=== PATIENT | male | born 1995 | race African-American/Black ===

== ENCOUNTER 2017-01-10 08:28 | Emergency (ER) | payer SELFPAY ==
[~2017-01-10] VITALS: Ht 170.2 cm; Wt 69.6 kg
[2017-01-10] MEDS ORDERED: IV NORMAL SALINE 500ML BAG 500 ML IV SCH (09:15)
--- NOTE | 2017-01-10 09:27 | PHYS DOC ---
Past Medical History Past Medical History: No Pertinent History Past Surgical History: No Surgical History Smoking: Cigarettes, 1 Pack Per Day Alcohol Use: Occasionally Drug Use: None Adult General Chief Complaint Chief Complaint: HEMATEMESIS/VOMITING BLOOD [facility] HPI he is a pleasant 21-year-old male with a history of intermittent subxiphoid chest pain for the last 6 months. Pain in his chest described as a dull ache with no radiation. A 6 of 10. It is not worsened by position or activity. He does no cough, no URI symptoms, no nausea no vomiting or diarrhea. Patient also complains of left flank pain is ongoing for 4 years. It is been episodic but her last 3-4 days as got progressively worse. It is localized primarily in the left lower quadrant. It is sometimes sharp and stabbing but does wax and wane with complete resolution. He also admits she's had some stools with possible streaks of blood. And one episode of hematemesis this morning. He denies any consumption of NSAIDs, denies any prior history of peptic ulcer disease, he does smoke does drink on occasion but not regularly. Patient has not taken any [id number] medications, he denies any fevers, will night sweats, weight loss, chills but has had some mild dizziness with standing quickly when he has bouts of this pain. Patient has not been evaluated for these symptoms and for years. Differential diagnosis for chest pain: Pericarditis, myocarditis, endocarditis, pneumothorax, pneumonia, aortic dissection, esophageal spasm, esophagitis, peptic ulcer disease, acute coronary syndrome, mediastinitis, Boerhaave syndrome , musculoskeletal chest wall pain, costochondritis, intercostal strain, rib fracture, pulmonary contusion, pneumonitis, pleural effusion, pericardial effusion, pericardial tamponode, and pleurisy. Review of Systems Review of Systems Constitutional: Denies fever or chills [] Eyes: Denies change in visual acuity, redness, or eye pain [] HENT: Denies nasal congestion or sore throat [] Respiratory: Denies cough or shortness of breath [] Cardiovascular: No additional information not addressed in HPI [] GI: he complains of abdominal pain in the left lower flank, nausea and vomiting 1 with hematemesis, no rectal pain no stooling problems except for mild streaks of blood : Denies dysuria or hematuria [] Musculoskeletal: He complains from earlier left flank pain. Integument: Denies rash or skin lesions [] Neurologic: Denies headache, focal weakness or sensory changes [] Endocrine: Denies polyuria or polydipsia [] Current Medications Current Medications Current Medications Medications (Trade) Dose Ordered Sig/Tammy Start Time Stop Time Status Last Admin Dose Admin Info (Do NOT chart on this entry -- for MONITORING) 1 each PRN DAILY PRN 01/10/17 10:15 01/12/17 10:14 Iohexol (Omnipaque 300 Mg/ml) 75 ml 1X ONCE 01/10/17 10:15 01/10/17 10:16 DC 01/10/17 10:22 75 ML Ketorolac Tromethamine (Toradol) 30 mg 1X ONCE 01/10/17 10:45 01/10/17 10:47 DC 01/10/17 11:19 30 MG Sodium Chloride 500 ml @ 500 mls/hr Q1H 01/10/17 09:15 01/10/17 09:41 DC 01/10/17 09:38 500 MLS/HR Sodium Chloride (Normal Saline Flush) 10 ml QSHIFT PRN 01/10/17 09:15 01/10/17 11:19 10 ML Allergies Allergies Allergies Coded Allergies Type Severity Reaction Last Updated Verified No Known Drug Allergies 01/10/17 No Physical Exam Physical Exam Vital signs recorded on the chart patient noted to be bradycardic which is normal for patient as he says, "" athlete Constitutional: Well developed, well nourished, no acute distress, non-toxic appearance. [] HENT: Normocephalic, atraumatic, bilateral external ears normal, oropharynx moist, no oral exudates, nose normal. [] Eyes: PERRLA, EOMI, conjunctiva normal, no discharge. [] Neck: Normal range of motion, no tenderness, supple, no stridor. [] Cardiovascular:Heart rate regular rhythm, no murmur [] Lungs & Thorax: Bilateral breath sounds clear to auscultation [] Abdomen: Bowel sounds normal, soft, mild tenderness to palpation left lower quadrant. No epigastric discomfort no Marx's or McBurney's point tenderness to palpation., no masses, no pulsatile masses. Rectal exam demonstrates no gross blood, no hematoma, no hemorrhoids, no fissure. No tenderness on palpation [] Skin: Warm, dry, no erythema, no rash. [] Back: No tenderness, no CVA tenderness. [] Extremities: No tenderness, no cyanosis, no clubbing, ROM intact, no edema. [] Neurologic: Alert and oriented X 3, normal motor function, normal sensory function, no focal deficits noted. [] Psychologic: Affect normal, judgement normal, mood normal. [] Current Patient Data Vital Signs Vital Signs Date Time Temp Pulse Resp B/P (MAP) Pulse Ox O2 Delivery O2 Flow Rate FiO2 01/10/17 11:20 40 16 132/62 (85) 98 Room Air 01/10/17 09:14 98.2 98.2 Lab Values Laboratory Tests Test 01/10/17 09:20 01/10/17 09:25 Stool Occult Blood Negative (NEG) White Blood Count 2.7 x10^3/uL (4.0-11.0) L Red Blood Count 5.05 x10^6/uL (4.30-5.70) Hemoglobin 15.4 g/dL (13.0-17.5) Hematocrit 44.7 % (39.0-53.0) Mean Corpuscular Volume 89 fL (79-100) Mean Corpuscular Hemoglobin 31 pg (25-35) Mean Corpuscular Hemoglobin Concent 34 g/dL (31-37) Red Cell Distribution Width 13.3 % (11.5-14.5) Platelet Count 228 x10^3/uL (140-400) Neutrophils (%) (Auto) 29 % (31-73) L Lymphocytes (%) (Auto) 60 % (24-48) H Monocytes (%) (Auto) 10 % (0-9) H Eosinophils (%) (Auto) 1 % (0-3) Basophils (%) (Auto) 1 % (0-3) Neutrophils # (Auto) 0.8 x10^3uL (1.8-7.7) L Lymphocytes # (Auto) 1.6 x10^3/uL (1.0-4.8) Monocytes # (Auto) 0.3 x10^3/uL (0.0-1.1) Eosinophils # (Auto) 0.0 x10^3/uL (0.0-0.7) Basophils # (Auto) 0.0 x10^3/uL (0.0-0.2) Platelet Estimate Pending Sodium Level 141 mmol/L (136-145) Potassium Level 4.5 mmol/L (3.5-5.1) Chloride Level 105 mmol/L (98-107) Carbon Dioxide Level 31 mmol/L (21-32) Anion Gap 5 (6-14) L Blood Urea Nitrogen 20 mg/dL (8-26) Creatinine 1.1 mg/dL (0.7-1.3) Estimated GFR (Cockcroft-Gault) 100.4 BUN/Creatinine Ratio 18 (6-20) Glucose Level 89 mg/dL (70-99) Calcium Level 8.6 mg/dL (8.5-10.1) Total Bilirubin 0.7 mg/dL (0.2-1.0) Aspartate Amino Transferase (AST) 17 U/L (15-37) Alanine Aminotransferase (ALT) 18 U/L (16-63) Alkaline Phosphatase 87 U/L (46-116) Total Protein 7.8 g/dL (6.4-8.2) Albumin 3.8 g/dL (3.4-5.0) Albumin/Globulin Ratio 1.0 (1.0-1.7) Laboratory Tests 01/10/17 09:25 Laboratory Tests 01/10/17 09:25 EKG EKG [] Radiology/Procedures Radiology/Procedures [] Course & Med Decision Making Course & Med Decision Making Pertinent Labs and Imaging studies reviewed. (See chart for details) []A she presents with intermittent chest pain for 6 months as well as 4 years of left flank pain. It isn't episodic discomfort as sharp and stabbing in nature. Not changed by activity or position. Chest pain differential is considered upon arrival. Patient is low risk for acute coronary event syndrome. But we will make sure that there is no evidence of pericarditis or pericardial effusion or cardiac issue or injury. Patient also the CAT scan of his abdomen to ensure there is no evidence of kidney stone or reticularis. Patient admits that he does drink alcohol on occasion but undoubtedly be suffering from an erosive alcohol gastritis or peptic ulcer disease at this time. Patient's CAT scan read at approximately 11:30 AM dose is no occult appendicitis , bowel obstruction, diverticulitis, diverticulosis, evidence of bowel inflammation consistent with IBS also cluster Crohn's. Patient is resting comfortable he is guaiac-negative from below. CBC is normal. Although his white count is 2.7 unclear cause. Patient's CMP is otherwise normal. Patient is resting without issue no vomiting or nausea no diarrhea here in the emergency room. Time is now 12:10 PM Patient tells me that their symptoms given during CC are improved. We reviewed labs and radiology reports with patient and any family at bedside. He feels markedly better follow-up with his doctor Dr. MAKRO Cifuentes Disclaimer Vane Disclaimer This electronic medical record was generated, in whole or in part, using a voice recognition dictation system. Departure Departure Impression: Primary Impression: Hematemesis Additional Impression: Abdominal pain Disposition: HOME, SELF-CARE Condition: IMPROVED Patient Instructions: Abdominal Pain (Nonspecific), Hematemesis Additional Instructions: My discharge plan Follow up: In addition patient is asked to followup with their primary doctor, within a week for followup examination and to address patient's ongoing medical conditions. . Patient is advised that in the Emergency Department primary complaints are addressed and only in light of known signs and symptoms. Patient should return immediately to the emergency department if new signs and symptoms develop or patient's condition worsens in any way. At time of discharge patient was in stable condition and had verbalized understanding of the discharge instructions. Although there is no obvious evidence of appendicitis or intra-abdominal catastrophe at this time requiring surgical intervention or immediate medical management you could still develop these issues in the future. I would ask that you return immediately for any increasing symptoms question concerns. Scripts Ondansetron (ZOFRAN ODT) 4 Mg Tab.rapdis 4 MG PO BID Y for NAUSEA/VOMITING for 5 Days, #10 TAB Prov: ANGELA LAMBERT MD 01/10/17 Ranitidine Hcl (ZANTAC) 150 Mg Tablet 1 TAB PO BID, #20 TAB 0 Refills Prov: ANGELA LAMBERT MD 01/10/17 Sucralfate (CARAFATE) 1 Gm Tablet 1 TAB PO QID, #60 TAB 1 Refill Prov: ANGELA LAMBERT MD 01/10/17 Problem Qualifiers ANGELA LAMBERT MD Jan 10, 2017 09:27
[2017-01-10] MEDS: 0.9 % SODIUM CHLORIDE 10 ML DISP.SYRIN. IV PRN ×2 (09:37→11:19)
[2017-01-10 09:50] LABS: BASO % 1 % (0-3); EOS % 1 % (0-3); HEMATOCRIT 44.7 % (39.0-53.0); HEMOGLOBIN 15.4 g/dL (13.0-17.5); LYMPH # 1.6 x10^3/uL (1.0-4.8); LYMPH % 60 % (24-48); MEAN CORPUSCULAR HEMOGLOBIN 31 pg (25-35); MEAN CORPUSCULAR HGB CONC 34 g/dL (31-37); MEAN CORPUSCULAR VOLUME 89 fL (79-100); MONO % 10 % (0-9); NEUT % 29 % (31-73); PLATELET COUNT 228 x10^3/uL (140-400); RED BLOOD COUNT 5.05 x10^6/uL (4.30-5.70); RED CELL DISTRIBUTION WIDTH 13.3 % (11.5-14.5); WHITE BLOOD COUNT 2.7 x10^3/uL (4.0-11.0)
[2017-01-10 10:02] LABS: NEG OBC FOB NEG; POS OBC FOB POS
[2017-01-10 10:08] LABS: CALCIUM 8.6 mg/dL (8.5-10.1); CREATININE 1.1 mg/dL (0.7-1.3); GFR 100.4; POTASSIUM 4.5 mmol/L (3.5-5.1)
[2017-01-10 10:13] LABS: ALBUMIN 3.8 g/dL (3.4-5.0); TOTAL BILIRUBIN 0.7 mg/dL (0.2-1.0); TOTAL PROTEIN 7.8 g/dL (6.4-8.2)
[2017-01-10] MEDS ORDERED: CONTRAST GIVEN MC PRN (10:15)
[2017-01-10] MEDS ORDERED: IOHEXOL 300 MG/ML 75 ML VIAL IV ONE (10:15)
--- NOTE | 2017-01-10 10:44 | RAD ---
Indication left lower quadrant abdominal pain. Blood in the stools. Axial images through the abdomen and pelvis were obtained. 75 cc of Omnipaque 300 was administered intravenously. No oral contrast was administered. No prior imaging of the abdomen or pelvis is available. The lung bases are clear. The liver and spleen appear unremarkable and the gallbladder appears grossly normal. No pancreatic abnormality is seen. No adrenal or significant renal anomalies are seen. There is a subcentimeter cyst associated with the right kidney. No acute finding is seen in the abdomen. The pelvis is unremarkable. No acute finding is seen. No mass is apparent. IMPRESSION: No acute finding seen in the abdomen or pelvis
[2017-01-10] MEDS ORDERED: KETOROLAC 30 MG/ML INJ. IV ONE (10:45)
[2017-01-10] MEDS ORDERED: SUCR1TAB35 PO (12:18)
[2017-01-10] MEDS ORDERED: ONDA4TAB10 PO (12:18)
[2017-01-10] MEDS ORDERED: RANI150T6 PO (12:18)
[2017-01-10 12:20] VITALS: BP 123/69
[2017-01-10 13:35] LABS: % EOS 2 % (0-5)
[2017-01-10 13:36] LABS: PLT ESTIMATE ADEQUATE (ADEQUATE)
--- NOTE | 2017-01-10 14:07 | EKG ---
[facility] [address] [place] [address] Test Date: 2017-01-10 Test Time: 09:29:56 Pat Name: DEON CHIN Department: Room: Gender: M [employer]: : 1995 Requested By: ANGELA LAMBERT Order Number: [id number] Reading MD: Measurements Intervals [place] Rate: 40 P: 26 IN: 176 QRS: 41 QRSD: 98 T: 56 QT: 440 QTc: 361 Interpretive Statements SINUS BRADYCARDIA QRS(T) CONTOUR ABNORMALITY CONSIDER ANTEROSEPTAL MYOCARDIAL DAMAGE ABNORMAL ECG RI6.01 No previous ECG available for comparison
== END 2017-01-10 12:35 | disposition home or self-care (01) ==
LOC: ER 08:28
DX: R10.32 Left lower quadrant pain (principal); K92.0 Hematemesis; R07.89 Other chest pain; F17.210 Nicotine dependence, cigarettes, uncomplicated
CPT/HCPCS: 36415; 74177; 80053; 82274; 85007; 85025; 86850; 86900; 86901; 93005; 96361; 96374; 99285; J1885; J7040; Q9967